=== PATIENT | female | born 1960 | race Caucasian/White ===

== ENCOUNTER → 2016-06-12 | Outpatient (CLI) | payer OTHER ==
[~2016-06-12] MED LIST: ALLERGY SYRING1 EAC1 SUB-Q/IV; ASPIRIN EC81 MG PO; CRESTOR40 MG PO; KRILL OIL 1,001 EAC1 PO; LEVOTHROID (SY88 MCG PO; MIRALAX17 GM PO; PRINIVIL (ZESTRI5 MG PO; TOPROL XL 5050 MG PO; ZYRTEC10 MG PO
== END | disposition disaster alternative care site (69) ==
LOC: GBCOE 08:19
DX: Z12.31 Encounter for screening mammogram for malignant neoplasm of breast (principal)
CPT/HCPCS: G0202